=== PATIENT | male | born 1930 | race Caucasian/White ===

== ENCOUNTER 2019-08-12 19:16 | Emergency (ER) | payer MEDICARE, BC ==
--- NOTE | 2019-08-12 19:33 | EDM.PDOC ---
ED HPI GENERAL MEDICAL PROBLEM - General Chief Complaint: Genitourinary Problem Stated Complaint: BLADDER PROBLEMS Time Seen by Provider: 08/12/19 19:33 - History of Present Illness INITIAL COMMENTS - FREE TEXT/NARRATIVE: 89-year-old male presents emergency room with bladder distention. The patient was discharged a couple days ago from [facility] in [place] where he had a knee replacement it is uncertain if he had a Ugarte in during surgery but after surgery they used multiple in and out straight catheters. The patient is otherwise doing well except his bladder feels pretty tired full and uncomfortable. He's had no fevers or chills no nausea no vomiting he was discharged on Cipro for a urinary tract infection he was placed on a 3 day course. Lower Abdomen Pain Score (Numeric/FACES): 2 - Related Data Allergies Allergy/AdvReac Type Severity Reaction Status Date / Time cephalexin monohydrate Allergy Hives Verified 08/12/19 19:34 [From [facility]] Home Meds: Home Meds Acetaminophen [Tylenol] 500 mg PO DAILY PRN 08/12/19 [History] Ciprofloxacin HCl [Cipro] 250 mg PO Q12H #14 tablet 08/12/19 [Rx] Ciprofloxacin [Ciprofloxacin HCl] 250 mg PO BID 08/12/19 [History] Ferrous Sulfate [Feosol] 200 mg PO BID 08/12/19 [History] Folic Acid 1 mg PO DAILY 08/12/19 [History] Furosemide [Lasix] 40 mg PO DAILY 08/12/19 [History] Isosorbide Mononitrate [Imdur] 60 mg PO DAILY 08/12/19 [History] Metoprolol Tartrate [Lopressor] 50 mg PO BID 08/12/19 [History] Sennosides/Docusate Sodium [Senna-Docusate Sodium Tablet] 1 tab PO BID PRN 08/12 [History] Sodium Bicarbonate 650 mg PO QID 08/12/19 [History] Tamsulosin HCl [Flomax] 0.4 mg PO BID 08/12/19 [History] Warfarin Sodium [Coumadin] 2.5 mg PO ASDIRECTED 08/12/19 [History] Warfarin [Coumadin] 2.5 mg PO ASDIRECTED 08/12/19 [History] atorvaSTATin [Lipitor] 80 mg PO BEDTIME 08/12/19 [History] oxyCODONE 5 mg PO Q4HR PRN 08/12/19 [History] Past Medical History Cardiovascular History: Reports: Afib, Hypertension ED ROS GENERAL - Review of Systems Review Of Systems: See Below Constitutional: Reports: No Symptoms HEENT: Reports: No Symptoms Respiratory: Reports: No Symptoms Cardiovascular: Reports: No Symptoms Endocrine: Reports: No Symptoms GI/Abdominal: Reports: No Symptoms : Reports: Urinary Retention Musculoskeletal: Reports: Other (His knee is a little uncomfortable but all things considered doing pretty get) Skin: Reports: No Symptoms Neurological: Reports: No Symptoms ED EXAM, GI/ABD - Physical Exam Exam: See Below Exam Limited By: No Limitations General Appearance: Alert, No Apparent Distress Head: Atraumatic, Normocephalic Neck: Normal Inspection, Supple, Non-Tender, Full Range of Motion Respiratory/Chest: Lungs Clear, Normal Breath Sounds Cardiovascular: Regular Rate, Rhythm, No Edema, No Murmur GI/Abdominal Exam: Normal Bowel Sounds, Soft, Other (Some suprapubic discomfort otherwise unremarkable good bowel sounds no rigidity rebound.) Back Exam: Normal Inspection. No: CVA Tenderness (L), CVA Tenderness (R) Neurological: Alert, Oriented, Normal Cognition Course - Vital Signs Last Recorded V/S: Last Vital Signs Temp 36.3 C 08/12/19 19:29 Pulse 72 08/12/19 19:29 Resp 20 08/12/19 19:29 BP 158/86 H 08/12/19 19:29 Pulse Ox 100 08/12/19 19:29 - Orders/Labs/Meds Orders: Active Orders 24 hr Category Date Time Status Bladder Scan [RC] ASDIRECTED Care 08/12/19 19:56 Active CULTURE URINE [RM] Stat Lab 08/12/19 20:15 Received Labs: Laboratory Tests 08/12/19 08/12/19 Range/Units 20:15 21:22 PT 22.4 H (9.7-12.0) SECONDS INR 2.15 Urine Color Yellow (Yellow) Urine Appearance Cloudy H (Clear) Urine pH 5.5 (5.0-8.0) Ur Specific [place] 1.020 (1.005-1.030) Urine Protein 2+ H (Negative) Urine Glucose (UA) Negative (Negative) Urine Ketones Negative (Negative) Urine Occult Blood 2+ H (Negative) Urine Nitrite Negative (Negative) Urine Bilirubin Negative (Negative) Urine Urobilinogen 0.2 (0.2-1.0) Ur Leukocyte Esterase Trace H (Negative) Urine RBC 5-10 H (0-5) /hpf Urine WBC 20-30 H (0-5) /hpf Ur Squamous Epith Cells 0-5 (0-5) /hpf Urine Bacteria Moderate H (FEW) /hpf Hyaline Casts 0-5 (0-5) /lpf Urine Mucus Few (FEW) /hpf - Re-Assessments/Exams Free Text/Narrative Re-Assessment/Exam: 08/12/19 21:06 She is doing much better after getting his bladder decompressed. We will leave the catheter in for for 5 days. His urinalysis is suggestive up until infection ongoing or new we'll continue Cipro for 5 more days he is on Flomax he'll continue to take this twice daily. He has follow-up with his regular doctor on Wednesday which may be good time to have the catheter removed. 08/13/19 00:37 Patient continues to do well after the catheter placement however she's had some bleeding around the catheter. His INR is 2.1 we will not reverse his Coumadin at this point this is due to be a little bit of a nuisance but should get better with time we will discharge home at this time. Departure - Departure Time of Disposition: 21:07 Disposition: Home, Self-Care 01 Clinical Impression: Urinary retention - Discharge Information Prescriptions: Ciprofloxacin HCl [Cipro] 250 mg PO Q12H #14 tablet Referrals: Myke Sumner MD [Primary Care Provider] - Forms: ED Department Discharge Additional Instructions: Return to the emergency room with any questions problems or worsening symptoms. This bleeding is going to be a nuisance but should get better with time. Return to emergency room if he think it's getting worse. We will continue your antibiotics take as directed. Follow-up with your physician as scheduled on Wednesday this would be a good time for catheter removal. Sepsis Event Note - Focused Exam Vital Signs: Vital Signs Temp Pulse Resp BP Pulse Ox 08/12/19 19:29 36.3 C 72 20 158/86 H 100 Date Exam was Performed: 08/13/19 Time Exam was Performed: 00:45 - My Orders Last 24 Hours: My Active Orders 08/12/19 19:56 Bladder Scan [RC] ASDIRECTED 08/12/19 20:15 CULTURE URINE [RM] Stat - Assessment/Plan Last 24 Hours: My Active Orders 08/12/19 19:56 Bladder Scan [RC] ASDIRECTED 08/12/19 20:15 CULTURE URINE [RM] Stat
[2019-08-12 19:34] VITALS: BP 158/86; PULSE 72
== END 2019-08-13 01:00 | disposition home or self-care (01) ==
LOC: JD.ED 19:16
DX: R33.9 Retention of urine, unspecified (principal); I10 Essential (primary) hypertension; I48.91 Unspecified atrial fibrillation; Z88.1 Allergy status to other antibiotic agents; Z79.899 Other long term (current) drug therapy
CPT/HCPCS: 36415; 51702; 51798; 81001; 85610; 87086; 99283; 99283-25